=== PATIENT | male | born 1985 | race African-American/Black ===

== ENCOUNTER 2021-12-17 19:58 | Emergency (ER) | payer SELFPAY ==
[2021-12-17 20:03] VITALS: BP 164/88; PULSE 86; RESP 16; TEMP 37.1; O2SAT 98
--- NOTE | 2021-12-17 20:29 | ED.GENADUL_ITS ---
Discharge Plan Disposition Patient Disposition: HOME Discharge Details Clinical Impression: Laceration Primary Care Provider: [facility] Provider: Alvino Justin Home Meds and New Rx's Prescriptions: New cephalexin 500 mg capsule 500 mg PO QID Qty: 30 0RF No Action cholecalciferol (vitamin D3) [D3-2000] 2,000 UNIT capsule 1 tab PO DAILY 0RF multivitamin Tablet 1 tab PO 5XW 0RF Discharge Instructions Instructions: Laceration (ED) Additional Instructions: suture removal iin 8 days if any redness/ drainage , warmth or fever please return to the ED Medical Decision Making Patient laceration to the right tib-fib area. Resolved. Currently on antibiotics initiated emergency department. Discussed with the patient pros and cons of getting an x-ray of tib fib area to r/o chip fx. The patiuent declined the xaray when I told him nothing different would happen if he had a chip fx. HPI General Date/Time Provider Initiated Documentation: 12/17/21 20:27 . HPI Narrative: 36-year-old who accidentally hit his head.. With a hatchet cutting a branch. He sustained a laceration to the anterior aspect of the leg. Bleeding controlled easily with a dressing. Pain over the site of trauma. Able to ambulate without difficulty. Acute injury that happened just prior to coming to the emergency department. Pain worse with touch and movement. No radiation of the pain. Relieved with rest. Not up-to-date with td Related Data Home Medications Medication Instructions Recorded Confirmed cholecalciferol (vitamin D3) 50 1 tab PO DAILY 07/20/14 12/17/21 mcg (2,000 unit) capsule (D3) cephalexin 500 mg capsule 500 mg PO QID #30 cap 12/17/21 multivitamin 1 tab PO 5XW 12/17/21 12/17/21 Previous Rx's Medication Instructions Recorded cephalexin 500 mg capsule 500 mg PO QID #30 cap 12/17/21 Allergies Allergy/AdvReac Type Severity Reaction Status Date / Time cat dander AdvReac Mild runny nose Unverified 12/17/21 20:08 house dust AdvReac Mild runny nose Unverified 12/17/21 20:08 General Stated Complaint: Laceration YONY: 3 Review of Systems Narrative: Const neg MSK neg Skin see hpi Neuro no paresthesias HEmato neg PFSH All Active Problems (Updated 12/17/21 @ 20:39 by Alvino Justin MD) Laceration (Acute) Social History Smoking/Tobacco Use Status: Former Tobacco Use Smoking risk assessment performed?: Yes Alcohol Intake: current Drug use: Occasionally Substance use type: marijuana Do you feel safe at home: Yes Do you feel safe in your relationship?: Yes Exam Narrative Exam Narrative: AAox3 calm NAD cooperative Cap refill normal Resp normal WOB Rt leg: ant tib fib area mid section - 4cm linear laceration - no FB Neuro intact Pysch normal mood affect Course Vital Signs Vital signs: Vital Signs Temperature 37.1 C 12/17/21 20:03 Pulse 86 12/17/21 20:03 Respiratory Rate 16 12/17/21 20:03 Blood Pressure 164/88 H 12/17/21 20:03 Pulse Oximetry 98 12/17/21 20:03 Temperature 37.1 C 12/17/21 20:03 Temperature Source Skin 12/17/21 20:03 Pulse 86 12/17/21 20:03 Respiratory Rate 16 12/17/21 20:03 Respiratory Effort 12/17/21 20:08 Blood Pressure 164/88 H 12/17/21 20:03 Pulse Oximetry 98 12/17/21 20:03 Oxygen Delivery Method Room Air 12/17/21 20:03 Oxygen Flow Rate 0 12/17/21 20:03 Pain Level 4 12/17/21 20:10 Procedures Laceration Laceration 1: Site: lower extremity Side (If applicable): right Size (cm): 4 Description: linear Depth: simple, single layer Local Anesthetic: Lidocaine 1% and with Epi Amount of anesthesia used (mL): 6 Pre-repair: wound explored and irrigated extensively Skin layer closed with: other (prolene) Size (cm): 3-0 Number of sutures: 6 PAWSS Have you Been Recently Intoxicated or Drunk Within the Last 30 days?: No Have you Ever Experienced Previous Episodes of Alcohol Withdrawal?: No Have you ever Experienced Withdrawal Seizures?: No Have you ever Experienced Delirium Tremens(DT)s?: No Have you ever undergone Alcohol Rehabilitation Treatment (i.e, inpt ot outpatient treatment programs)?: No Have you ever Experienced Blackouts?: No Have you ever Combined Alcohol with other Downers within the last 90 days?: No Have you ever Combined Alcohol with any other Substance of Abuse during the last 90 days?: No Positive Blood Alcohol level on Presentation? [PCS.BAL]: No Evidence of Increased Autonomic Activity (i.e. HR>120, tremor, sweating, agitation, nausea)?: No Result: 0
[2021-12-17] MEDS: Bacitracin 1 PACKET (20:39)
[2021-12-17] MEDS: Cephalexin 500 MG CAP 1000 MG PO (20:39)
== END 2021-12-17 20:55 | disposition home or self-care (01) ==
PROVIDERS: Emergency Provider Emergency Medicine
DX: S81.811A Laceration without foreign body, right lower leg, initial encounter (principal); W27.8XXA Contact with other nonpowered hand tool, initial encounter
CPT/HCPCS: 90471; 99284; 99283